=== PATIENT | male | born 1985 | race Caucasian/White ===

== ENCOUNTER 2018-06-13 09:31 | Day surgery (SDC) | payer OTHER ==
--- NOTE | 2018-06-12 18:13 | PDGENHP ---
History and Physical - Chief Complaint RIGHT HIP PAIN - History of Present Illness 1. Bilateral~Femoroacetabular impingement (EJ) Cam type,~with~resultant labral tear; RIGHT SIDE SYMPTOMATIC 2. Left BL~Hip Dyplasia 3. Iliopsoas tendinitis 4. 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 ~Rishienjoys weight lifting, travelling, walking his dog. José Miguel's~right~hip pain started~December 2017, with~no~recalled trauma or injury, and with~no~previous complaints.~Rishidoes not have~a known history of hip dysplasia. Presentation today is of~C-Shaped pattern~right~hip pain.~~The hip~does not~ wake him~at night and~does~click and catch on~him. Sitting~does not present a problem~for him.~Rishidoes not~report suffering from lower back pain episodes. Rishihas~participated in physical therapy (6 weeks)~and has~tried other conservative measures including chiropractic treatments and massage therapy.~Royal~ has not~received sufficient symptomatic improvement. Rishihas~utilized medication for pain management, including NSAID and OTC acetaminophen.~Rishihas used medication since the pain began. Rishidenies issues with the left~hip. ~ Rishiunderstands that~keithhas a hip and pelvis problem which should be researched and wishes to get a better understanding of~his~hip status, followed by an establishment of a treatment strategy, hoping~keithwould be able to get back to~his~well being active life. History: Past medical history:~~ Vocal chord dysfunction, anxiety, depression Relevant familial history:~None which is relevant~ Past surgical history:~ No. Surgery Anesthesia 1 Ing hernia general 2 Left great toe surgery general 3 Turbinate reduction general Rishidenies problematic issues with general anesthesia in the past. I have reviewed, verified and agree with the past medical, surgical, family and social history. Current Medications:~has a current medication list which includes the following prescription(s): albuterol sulfate, cetirizine, epinephrine, fluticasone- salmeterol, and triamcinolone acetonide. ALLERGIES:~is allergic to hazelnut; peanut; and soybean. Objective: Physical Examination: Rishiis 6~feet~3~inches tall and weighs~200~Lbs. José Miguel~is AAO x3; royal~is well- nourished, in NAD. Skin is warm and dry. ~Breathing is non-labored. ~CV with RRR by pulse. Abdomen is soft, NTND. Currently,~royal~walks with a~normal~gait. Trendelenburg sign is~negative~and proprioception~is normal,~both~sides. He~presents~with no~signs of joint laxity.~Beightons Score:~1 Lower spine examination is~negative~for sciatic or femoral nerve irritation with negative~SLR &~femoral stretch tests. Range of motion of the spine is normal~for flexion, extension, and rotations,~with no~associated pain. Strength, Sensation and pulses are~normal -~bilaterally Ankles and knees exams are~normal~and~no~mal-alignment is evident.~ Royal~has~no leg length discrepancy. Thigh circumference is~symmetric~with no evidence for muscle atrophy~on both~ sides. Hip ROM (degrees): FL ER At 90~hip FL IR At 90~hip FL AB AD EX IR Neutral hip ER Neutral hip R 105 45 15 35 5 5 45 20 L 105 45 20 35 10 5 45 20 Specific hip and pelvis tests: Impingement Test PAVAN Roll Add. Longus R +++ +++ Negative ++ L Negative Negative Negative + Glut. Med ITB Posterior Imp R + 5/5 strength Negative 5/5 strength Negative L Negative 5/5 strength Negative 5/5 strength Negative Squeeze test measured~strong Bony Symphysis pubis is~pain free~to touch while concentric activity of the rectus abdominis, does not~produce pain at its insertion. Ilio Psos specific tests are~positive for pain during cycling for~the right hip~ and no snap. HF has~good strength, no pain~both hips. Posterior capsule tenderness RIGHT HIP Greater trochanteric burse is~pain free~on both hips. Piriformis tests: FAIR is~negative,~with no~local signs of neuritis related to sciatic nerve. SIJs examination is~normal~with~normal~PAVAN in relation and local tenderness. Hamstrings tests are~negative~functional contraction and negative~tendinopathy both hips. On a daily basis, the following percentages reflect~José Miguel's overall total pain: Deep hip:~100% Imaging: Radiology studies which I~have personally reviewed, analyzed and measured are below: XR: AP of the hip and pelvis: Performed in a~good~technique Coccyx to pubic symphysis distance~0.6~cm. 0~degrees [place]~Lines are interrupted. Minimal~Pathological signs are seen in the Symphysis Pubis.~ Minimal~Pathological signs are seen at the Ischial~tuberosity. ~ Specific measurements show: NSA~ LCE Sourcil~Angle Sharp's angle Lat. Cam Lat. Pincer C.Over~sign Head~Coverage % ATDmm R N 28 5 41 + - 12-1:30 78 N L N 24 6 43 + - 12-1 76 N Labral CALCIFICATIONS Pos. wall sign ISS NAD ~~Dysplasia Comments R Negative Negative 10.2~mm + L Negative Negative 14.1~mm + Sclerosis Sup. Lat. OA Cysts Joint Space-WBZ Joint Space-Medial R Negative Negative Negative 3.9~mm 3.8~mm L Negative Negative Negative 4.2~mm 3.6~mm X Table lateral: Anterior cam lesion is~seen~on both hips. Alpha Angle: ~ Right~54~dergrees Left~81~degrees Low resolution~MRI~(1.5T)~shows: calcified areas of labrum, labral tear without detected hypertrophy, no bone edema or subchondral cysts Impression and plan:~ José Miguel~is a~33 y.o.~active male~suffering from symptomatic~Right~hip pain due to Femoroacetabular impingement (EJ)~Cam type,~with~resultant labral tear~causing significant disability to~him~and altering~his~sport and life activities. Physical examination, imaging, and~his~story correspond with the diagnosis mentioned above. I explained that hip dysplasia is a condition wherein the hip joint has excessive play~and instability due to a variety of factors, including the depth and adequacy of the socket, the orientation of the femur bone, and ligament laxity around the hip joint. Dysplasia ranges in severity from borderline to katherine, with treatment options being specific to the specific nature of the problem. Left untreated, the instability in the hip joint can cause progressive tearing of the labrum and deterioration of the surface cartilage, ultimately resulting in progressive osteoarthritis of the hip. I explained that femoroacetabular impingement (EJ - Cam type) arises due to a bony or soft tissue conflict between the femur (ball) and acetabulum (socket) caused by an abnormality in the shape of the femoral head and neck. Over time, repetitive impingement can result in damage to the labrum and adjacent surface cartilage within the socket, ultimately giving rise to progressive osteoarthritis of the hip. I explained that although a labral tear can be a source of pain, it is rarely the root of the problem and typically occurs secondary to an underlying abnormality in the shape and mechanics of the hip joint. I reviewed conservative treatment options for Dysplasia and EJ including activity modification to avoid positions of impingement or instability, physical therapy, non-steroidal anti-inflammatory medications, and various injections (corticosteroid and PRP) aimed at reducing inflammation in the hip joint or/and preventing dynamic instability and impingement. PRP injections may promote healing and reduce symptoms in certain cases but it will not repair chronically damaged tissue. Although these measures may help to buy time~and reduce current level of symptoms, they are not a definitive solution to the problem given the underlying abnormality in the shape of the hip joint. Patients who have failed conservative management and continue to experience symptoms are candidates for definitive surgical treatment, which may consist of hip arthroscopy alone or in combination with more invasive bony realignment procedures of the hip socket and/or femur called periacetabular osteotomy (JOAN)) . Hip arthroscopy typically includes treating the labrum with either repair or reconstruction of the torn labrum; as well as addressing the underlying abnormalities by restoring the normal shape to the hip joint. If the cartilage is damaged a Microfracture surgical procedure may also be necessary to help stimulate the growth of fibrocartilage. 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 I reviewed the technical aspects of hip arthroscopy including risks, benefits, and expected course of recovery.~José Miguel~understands that hip arthroscopy is a minimally invasive outpatient procedure carried out through small incisions on the outer aspect of the hip joint. During surgery, the labral tear will be identified and either repaired or reconstructed~using bone anchors and suture material. Additionally, any excessive bone will be removed with a high-speed cindy to reshape the hip joint and restore normal anatomy. Risks include infection, bleeding, injury to nearby nerves or vessels, stiffness, persistent pain, instability, venous thromboembolic disease, and traction related complications including temporary foot numbness. Rarely, revision surgery may be required to address these problems. Overall recovery takes approximately 4~ 8~months depending on the extent of damage and degree of repair. In the event that the labral tissue quality is inadequate for successful repair and healing,~José Miguel~understands that a labral reconstruction will be performed. This procedure entails placing a cadaver tissue graft within the hip joint and stabilizing it with bone anchors to build a new labrum. The overall recovery time for labral reconstruction is similar to that of labral repair, although the surgical procedure takes longer to perform. Due to the fact that José Miguel does not have ligament laxity and that his instability characteristics are not significant, hip arthroscopy alone is a reasonable course of action. José Miguel~will review the info presented. In order to obtain more detailed information regarding the alignment, orientation, and shape of the bony hip and pelvis I will order a CT scan to be performed. The results of the CT scan, including femoral torsion and acetabular version measured values and 3D images, will aid me in deciding on the best treatment strategy and surgical pre-planning. José Miguel~will contact us if he~wishes to pursue further treatment in the future. José Miguel~is happy with this plan. I have also supplied~him~with handouts, outlining the expected surgical treatment and rehab involved. I wish~Rishiall the best, ~~ Armand Pugh [facility] History Information - Allergies/Home Medication List Allergies/Adverse Reactions: No Known Allergies Allergy (Unverified 06/08/18 16:05) Home Medications: Albuterol 5 mg/ml INH 06/08/18 [Last Taken Unknown] Effexor Xr 06/08/18 [Last Taken Unknown] Herbals/Supplements -Info Only 06/08/18 [Last Taken Unknown] Hydroxyzine HCl 06/08/18 [Last Taken Unknown] Melatonin 06/08/18 [Last Taken Unknown] Montelukast Sodium 06/08/18 [Last Taken Unknown] Naproxen 06/08/18 [Last Taken Unknown] Omeprazole 06/08/18 [Last Taken Unknown] Propranolol HCl 06/08/18 [Last Taken Unknown] Ranitidine HCl 06/08/18 [Last Taken Unknown] Trazodone HCl 06/08/18 [Last Taken Unknown] Zyrtec 06/08/18 [Last Taken Unknown] I have personally reviewed and updated: medical history - Social History Smoking Status: Never smoked Review of Systems Review of Systems: Physical Exam Physical Exam:
[2018-06-13] MEDS ORDERED: ceFAZolin 2 GM/DEXTROSE 100 ML IV ONE (09:38)
[2018-06-13] MEDS ORDERED: PREGABALIN 150 MG CAP PO ONE (09:38)
[2018-06-13] MEDS ORDERED: ACETAMINOPHEN 500 MG TAB PO ONE (09:38)
[2018-06-13] MEDS ORDERED: LR 1,000 ML IV ONE (09:40)
[2018-06-13] MEDS ORDERED: ACETAMINOPHEN 500 MG TAB ONE (09:53)
[2018-06-13] MEDS ORDERED: BUPIVACAINE 0.25% 30 ML SDV ONE (11:24)
[2018-06-13] MEDS ORDERED: EPINEPHrine 1 MG/ML INJ ONE ×2 (11:25)
[2018-06-13] MEDS ORDERED: MIDAZOLAM 2 MG/2 ML VIAL IVP ONE ×2 (13:26→13:49)
--- NOTE | 2018-06-13 13:49 | PDANEPAE ---
ANE History of Present Illness 33 yo for hip scope ANE Past Medical History - Cardiovascular History Hx Hypertension: No Hx Arrhythmias: No Hx Chest Pain: No Hx Coronary Artery / Peripheral Vascular Disease: No Hx CHF / Valvular Disease: No Hx Palpitations: No - Pulmonary History Hx COPD: No Hx Asthma/Reactive Airway Disease: Yes Hx Recent Upper Respiratory Infection: No Hx Oxygen in Use at Home: No Hx Sleep Apnea: No Sleep Apnea Screening Result - Last Documented: Negative Pulmonary History Comment: VOCAL CORD DYSFUNCTION - Neurologic History Hx Cerebrovascular Accident: No Hx Seizures: No Hx Dementia: No - Endocrine History Hx Diabetes: No - Renal History Hx Renal Disorders: No - Liver History Hx Hepatic Disorders: No - Neurological & Psychiatric Hx Hx Neurological and Psychiatric Disorders: No Neurological / Psychiatric History Comment: ANXIETY & DEPRESSION - Cancer History Hx Cancer: No - Congenital Disorder History Hx Congenital Disorders: No - GI History Hx Gastrointestinal Disorders: No - Other Health History Other Health History: NEG - Chronic Pain History Chronic Pain: No - Surgical History Prior Surgeries: TONSILLECTOMY. TURBINATE REDUCTION. ING HERNIA R. L FOOT GREAT TOE. WISDOM TEETH ANE Review of Systems Review of Systems: - Exercise capacity METS (RN): 6 METS ANE Patient History - Allergies Allergies/Adverse Reactions: No Known Allergies Allergy (Unverified 06/08/18 16:05) - Home Medications Home Medications: Albuterol 5 mg/ml INH 06/08/18 [Last Taken 06/12/18] Effexor Xr 06/08/18 [Last Taken 06/13/18] Herbals/Supplements -Info Only 06/08/18 [Last Taken 06/13/18] Hydroxyzine HCl 06/08/18 [Last Taken 06/13/18] Melatonin 06/08/18 [Last Taken 06/13/18] Montelukast Sodium 06/08/18 [Last Taken 06/13/18] Naproxen 06/08/18 [Last Taken 06/13/18] Omeprazole 06/08/18 [Last Taken 06/13/18] Propranolol HCl 06/08/18 [Last Taken 06/13/18] Ranitidine HCl 06/08/18 [Last Taken 06/13/18] Trazodone HCl 06/08/18 [Last Taken 06/13/18] Zyrtec 06/08/18 [Last Taken 06/13/18] Nasacort 06/13/18 [Last Taken 06/13/18] - NPO status NPO Since - Liquids (Date): 06/13/18 NPO Since - Liquids (Time): 08:00 NPO Since - Solids (Date): 06/12/18 NPO Since - Solids (Time): 19:00 - Smoking Hx Smoking Status: Never smoked - Family Anes Hx Family Hx Anesthesia Complications: NEG ANE Labs/Vital Signs - Vital Signs Blood Pressure: 118/88 Heart Rate: 56 Respiratory Rate: 16 O2 Sat (%): 96 Height: 6 ft 3 in Weight: 92.986 kg ANE Physical Exam - Airway Neck exam: FROM Mallampati Score: Class 2 Mouth exam: normal dental/mouth exam - Pulmonary Pulmonary: no respiratory distress - Cardiovascular Cardiovascular: regular rate and rhythym - ASA Status ASA Status: II ANE Anesthesia Plan Anesthesia Plan: general endotracheal anesthesia
[2018-06-13] MEDS ORDERED: NALOXONE HCL 0.4 MG/ML INJ IVP PRN (16:49)
[2018-06-13] MEDS ORDERED: NS 500 ML IV PRN (16:49)
[2018-06-13] MEDS ORDERED: HYDROmorphONE/DILAUDID 2 MG/ML INJ IVP PRN (16:49)
[2018-06-13] MEDS ORDERED: ALBUTEROL 3 ML DEYVIAL IH PRN (16:49)
[2018-06-13] MEDS ORDERED: ONDANSETRON 4 MG/2 ML VIAL IVP PRN (16:49)
[2018-06-13] MEDS ORDERED: oxyCODONE IR 5 MG TAB PO PRN (16:49)
[2018-06-13] MEDS ORDERED: ACETAMINOPHEN 500 MG TAB PO PRN (16:49)
[2018-06-13] MEDS ORDERED: fentaNYL 100 MCG/2 ML INJ IVP PRN (16:49)
[2018-06-13] MEDS ORDERED: DEXAMETHASONE 4 MG/ML VIAL IVP PRN (16:49)
[2018-06-13] MEDS ORDERED: PROPOFOL/EMULSION 500 MG/50 ML BOTTLE IV ONE (17:14)
[2018-06-13] MEDS ORDERED: ROCURONIUM 50 MG/5 ML VIAL ONE ×2 (17:16→20:50)
[2018-06-13] MEDS ORDERED: HYDROmorphONE/DILAUDID 2 MG/ML INJ ONE (17:16)
[2018-06-13] MEDS ORDERED: DEXAMETHASONE 4 MG/ML VIAL ONE ×2 (17:20)
[2018-06-13] MEDS ORDERED: RANITIDINE 50 MG/2 ML VIAL ONE (17:20)
[2018-06-13] MEDS ORDERED: ONDANSETRON 4 MG/2 ML VIAL ONE (17:20)
--- NOTE | 2018-06-13 18:45 | POSTOPPROG ---
Post Op Note Date of Operation: 06/13/18 Surgeon: Prieto Newman [employer] Furn[employer] Manager: Dr. Darby Anesthesia: GET(General Endotracheal) Pre-op Diagnosis: RIGHT EJ Post-op Diagnosis: RIGHT EJ Procedure: Right Hip Arthroscopy Inf/Abcess present in the surg proc area at time of surgery?: No
[2018-06-13] MEDS ORDERED: SUGAMMADEX SODIUM 200 MG/2 ML VIAL IVP ONE (20:50)
[2018-06-13] MEDS ORDERED: MEPERIDINE 25 MG/0.5 ML AMP ONE (21:56)
[2018-06-13] MEDS ORDERED: MEPERIDINE 25 MG/0.5 ML AMP IVP PRN (22:01)
--- NOTE | 2018-06-13 22:05 | POSTANESTH ---
Post Anesthetic Evaluation Cardiovascular Status: Normal, Stable Respiratory Status: Normal, Stable Level of Consciousness/Mental Status: Can Participate in Eval Pain Control: Adequate, Prn Tx Ordered Nausea/Vomiting Control: Adequate, Prn Tx Ordered Complications Possibly Related to Anesthesia: None Noted
[2018-06-13 22:49] VITALS: BP 125/74
== END 2018-06-13 22:45 | disposition home or self-care (01) ==
LOC: FSGY 09:31
PROVIDERS: ATTEND Orthopaedic Surgery Sports Medicine
PROC: BQ101ZZ Fluoroscopy of Right Hip using Low Osmolar Contrast (ICD-10-PCS; principal; 2018-06-13 11:00)
PROC: 0SQ94ZZ Repair Right Hip Joint, Percutaneous Endoscopic Approach (ICD-10-PCS; principal; 2018-06-13 11:00)
PROC: 0SB94ZZ Excision of Right Hip Joint, Percutaneous Endoscopic Approach (ICD-10-PCS; principal; 2018-06-13 11:00)
DX: M25.851 Other specified joint disorders, right hip (principal); Q65.89 Other specified congenital deformities of hip; M65.88 Other synovitis and tenosynovitis, other site
CPT/HCPCS: C1713; J0171; J0690; J1100; J1170; J2175; J2250; J2405; J2704; J2780